=== PATIENT | male | born 1955 | race Caucasian/White ===

== ENCOUNTER 2020-06-03 07:44 | Emergency (ER) | payer OTHER ==
[2020-06-03] MEDS ORDERED: Lorazepam 2 MG/ML VIAL ONE (08:32)
--- NOTE | 2020-06-03 08:58 | CT ---
CT Cervical Spine WO Con History: Fall. Altered mental status Comparison: None. Findings: The odontoid process is intact with motion artifact at the C2 body. Occipital condyles are intact. There is motion artifact through the facets of C2/C3. Multilevel high-grade degenerative disc space disease from C5-T1. Transverse processes are intact. Spinous processes are intact. 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 Lung apices are clear. Paraspinal soft tissues are unremarkable. Impression: No acute fracture or malalignment cervical spine.
--- NOTE | 2020-06-03 09:17 | CT ---
CT BRAIN WITHOUT CONTRAST: HISTORY:Fall, altered mental status COMPARISON:05/24/2020 FINDINGS: There are foci of decreased attenuation in the periventricular white matter, consistent with chronic small vessel ischemic disease. No evidence of acute infarct, hemorrhage, midline shift or abnormal extra-axial fluid collections is seen. The ventricular size is appropriate and the basilar cisterns are patent. 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 The bony calvarium is intact. 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 IMPRESSION: Stable exam. No CT evidence of acute intracranial process.
[2020-06-03 09:55] LABS: Hemoglobin 10.6 g/dL (14.0-18.0); Mean Corpuscular Volume 96.9 fL (78.0-98.0); RBC Distribution Width 13.9 % (11.5-14.5); Red Blood Cell (RBC) Count 3.31 mill/uL (4.70-6.10); White Blood Cell (WBC) Count 3.3 thou/uL (4.8-10.8)
[2020-06-03 09:56] LABS: #Eosinphils 0.2 thou/uL (0.0-0.7); #Lymphocytes 0.6 thou/uL (1.20-3.40); #Monocytes 0.4 thou/uL (0.11-0.59); #Neutrophils 2.1 thou/uL (1.40-6.50); %Basophils 1.4 % (0.0-1.0); %Eosinophils 5.2 % (0.0-10.0); %Lymphocytes 18.1 % (21.0-51.0); %Monocytes 12.8 % (0.0-10.0); %Neutrophils 62.6 % (42.0-75.0); Mean Platelet Volume 7.2 fL (7.4-10.4); Platelet Count 85 thou/uL (130-400)
[2020-06-03] MEDS ORDERED: Sodium Chloride 0.9% 2,000 ML ONE (10:01)
[2020-06-03 10:02] LABS: ALT (SGPT) 31 U/L (8-55); AST (SGOT) 40 U/L (5-34); Alkaline Phosphatase 134 U/L (40-110); Anion Gap 13 mmol/L (10-20); BUN (Urea Nitrogen) 13 mg/dL (8.4-25.7); Bilirubin, Total 1.3 mg/dL (0.2-1.2); Calc. Creatinine Clearance 0 mL/min (70-130); Calcium 8.6 mg/dL (7.8-10.44); Carbon Dioxide 26 mmol/L (23-31); Chloride 107 mmol/L (98-107); Estimated GFR-MDRD 83; Globulin 3.2 g/dL (2.4-3.5); Glucose 142 mg/dL (80-115); Potassium 3.8 mmol/L (3.5-5.1); Protein, Total 6.2 g/dL (5.8-8.1); Sodium 142 mmol/L (136-145)
[2020-06-03] MEDS ORDERED: Sodium Chloride 0.9% 1,000 ML ONE (10:41)
[2020-06-03] MEDS ORDERED: Bacitracin 1 PK ONE (10:42)
[2020-06-03] MEDS ORDERED: DOPamine 400 MG/D5W 250 ML 250 ML ONE (11:12)
== END 2020-06-03 13:35 | disposition short-term general hospital (02) ==
LOC: NAV ERS 07:44
DX: K72.90 Hepatic failure, unspecified without coma (principal); D50.9 Iron deficiency anemia, unspecified; E66.9 Obesity, unspecified; Z79.899 Other long term (current) drug therapy
CPT/HCPCS: 36415; 70450; 72125; 80053; 82140; 85025; 96361; 96365; 96375; J1265; J2060; J7050